=== PATIENT | female | born 1995 | race Caucasian/White ===

== ENCOUNTER 2023-10-01 08:12 | Emergency (ER) | payer BC ==
[2023-10-01] MEDS ORDERED: MORPHINE 4 MG/ML SYR ONE (09:06)
[2023-10-01] MEDS ORDERED: NA CHLORIDE 0.9% 1,000 ML ONE (09:06)
[2023-10-01] MEDS ORDERED: ONDANSETRON 4 MG/2 ML VIAL ONE (09:06)
[2023-10-01] MEDS ORDERED: FAMOTIDINE 20 MG/2 ML VIAL IV ONE (09:06)
[2023-10-01] MEDS ORDERED: KETOROLAC 30 MG/ML INJ ONE (09:06)
[2023-10-01 09:47] LABS: Absolute Eosinophils 0.1 K/uL (0-0.5); Absolute Lymphocytes (CBC) 1.6 K/uL (0.7-4.9); Absolute Monocytes 0.6 K/uL (0.1-1.3); Absolute Neutrophil 7.6 K/uL (1.8-8.0); Basophils % 0.3 % (0-1.3); Eosinophils % 1.2 % (0-4.4); Hematocrit 42.4 % (36.0-45.0); Hemoglobin 14.6 g/dL (12.0-15.0); Lymphocytes % 16.3 % (15.3-44.8); MCH 30.8 pg (27.0-35.0); MCHC 34.4 g/dL (32.0-36.0); MCV 89.5 fL (80-100); MPV 8.1 fL (7.6-11.3); Neutrophils % 76.2 % (41.7-73.7); Nucleated Red Blood Cells % 0.1 % (0-0); Platelets 354 thou/uL (152-406); RBC Red Blood Cell Count 4.73 M/uL (3.86-4.86); Red Cell Distribution Width 13.2 % (12.1-15.2)
[2023-10-01 10:09] LABS: Specific Gravity 1.008 (1.005-1.030)
[2023-10-01 10:10] LABS: Specific Gravity 1.008 (1.005-1.030); Sqamous Epithelial <5 /HPF (None Seen); Urine Bacteria None Seen /HPF (<20); Urine Bilirubin NEGATIVE (Negative); Urine Blood Negative (Negative); Urine Clarity Turbid (Clear); Urine Color Colorless (Yellow); Urine Crystals Unidentified Few /HPF (None Seen); Urine Culture Reflex Order NOT NEEDED; Urine Glucose NEGATIVE (Negative); Urine Ketones NEGATIVE (Negative); Urine Microscopic Reflex YN ORDER UMIC; Urine Mucus Slight /HPF (None Seen); Urine Nitrite NEGATIVE (Negative); Urine Protein NEGATIVE (Negative); Urine RBC <5 /HPF (None Seen); Urine Urobilinogen Normal (Normal); Urine WBC <5 /HPF (<5)
[2023-10-01 10:18] LABS: Albumin 3.5 g/dL (3.4-5.0); Albumin/Globulin Ratio 0.9 (1.1-1.8); Anion Gap 8.8 mEq/L (5.0-15.0); Bilirubin Total 0.3 mg/dL (0.2-1.0); Globulin 3.8 g/dL (2.3-3.5); Potassium 3.8 mEq/L (3.5-5.1); Protein, Total 7.3 g/dL (6.4-8.2)
[2023-10-01] MEDS ORDERED: CEFTRIAXONE 1000 MG/VIAL ONE (10:37)
[2023-10-01] MEDS ORDERED: NA CHLORIDE 0.9% 100 ML ONE (10:38)
--- NOTE | 2023-10-01 10:41 | RAD REPORT ---
EXAM DESCRIPTION: CTStone Protocol - 10/01/2023 10:33 am CLINICAL HISTORY: back pain COMPARISON: No comparisons TECHNIQUE: CT of the abdomen and pelvis was performed. All CT scans are performed using dose optimization technique as appropriate and may include automated exposure control or mA/KV adjustment according to patient size. FINDINGS: Lower chest: Small hiatal hernia. Liver: No acute abnormality or suspicious lesions. Biliary: No biliary ductal dilatation. Stomach: No significant focal abnormality. Duodenum: No significant focal abnormality. Pancreas: No significant abnormality. Spleen: No significant abnormality. Adrenal: No suspicious lesions. Kidney/ureter: Bilateral nephrolithiasis. Right-sided perinephric stranding. No hydronephrosis. Right -sided urothelial thickening is suspected. No ureteral calculi. Retroperitoneum: No retroperitoneal adenopathy. Vascular: No aneurysm. Bowel: No significant focal abnormality. Normal appendix. Peritoneum: No ascites or free air. Bladder: Grossly unremarkable. Reproductive: No adnexal masses. Bones: No acute fracture. Other: n/a IMPRESSION: Right-sided perinephric stranding and periureteric stranding without ureteral calculi. N o hydronephrosis. Question either recently passed stone versus infection. Correlate with urinalysis.
[2023-10-01] MEDS ORDERED: PHENAZOPYRIDINE 100MG TAB PO ONE (10:55)
[2023-10-01] MEDS ORDERED: levoFLOXacin 750 MG TAB ONE (10:55)
--- NOTE | 2023-10-01 11:09 | ER ---
Nurse's Notes [facility] Name: Bebe Yacney Age: 28 yrs Sex: Female : 1995 Arrival Date: 10/01/2023 Time: 07:58 Bed 20 Private MD: Diagnosis: Pyelonephritis acute;UTI/ Urinary tract infection, site not specified;Low back pain Presentation: 09/30 08:16 Chief complaint: Patient states: LOWER BACK PAIN RADIATES TO ABDOMEN FEELS SIMILAR TO db KIDNEY STONES. STARTED LAST NIGHT. TOOK TYLENOL AT 0530. Coronavirus screen: Client denies travel out of the [place] in the last 14 days. At this time, the client does not indicate any symptoms associated with coronavirus-19. Ebola Screen: Patient negative for fever greater than or equal to 101.5 degrees Fahrenheit, and additional compatible Ebola Virus Disease symptoms Patient denies exposure to infectious person. Patient denies travel to an Ebola-affected area in the 21 days before illness onset. No symptoms or risks identified at this time. Initial Sepsis Screen: Does the patient meet any 2 criteria? No. Patient's initial sepsis screen is negative. Does the patient have a suspected source of infection? No. Patient's initial sepsis screen is negative. Risk Assessment: Do you want to hurt yourself or someone else? Patient reports no desire to harm self or others. Onset of symptoms was October 01, 2023. 08:16 Method Of Arrival: Ambulatory db 08:16 Acuity: TIFFANY 3 db Triage Assessment: 08:17 General: Appears in no apparent distress. comfortable, Behavior is calm, cooperative. db Pain: Complains of pain in back and pelvis. Neuro: Level of Consciousness is awake, alert, obeys commands, Oriented to person, place, time, situation. Musculoskeletal: Circulation, motion, and sensation intact. Capillary refill < 3 seconds, Range of motion: intact in all extremities. Historical: - Allergies: 08:17 No Known Allergies; db - PMHx: 08:17 Kidney stone; db - PSHx: 08:17 Tonsillectomy; db - Immunization history:: Adult Immunizations unknown. - Infectious Disease History:: Denies. - Social history:: Smoking status: Patient reports the use of cigarette tobacco products, denies chronic smoking, but will smoke occasionally. Assessment: 08:16 Reassessment: SEE TRIAGE FOR INITIAL ASSESSMENT. db 11:01 Reassessment: No changes from previously documented assessment. Patient and/or family mb9 updated on plan of care and expected duration. Pain level reassessed. Patient is alert, oriented x 3, equal unlabored respirations, skin warm/dry/pink. Vital Signs: 08:16 BP 148 / 113; Pulse 95; Resp 18; Temp 98.4(O); Pulse Ox 97% ; Weight 90.72 kg; Height 5 db ft. 3 in. ; Pain 10/10; 10:11 BP 118 / 69; Pulse 85; Resp 18; Pulse Ox 100% on R/A; mb9 08:16 Body Mass Index 35.43 (90.72 kg, 160.02 cm) db 08:16 Pain Scale: Adult db ED Course: 07:58 Patient arrived in ED. im 07:59 Daniel Kwon MD is Attending Physician. torrey 08:16 Bebe Warren, RN is Primary Nurse. db 08:17 Triage completed. db 08:17 Arm band placed on. db 09:20 Initial lab(s) drawn. Inserted saline lock: 20 gauge in right antecubital area, using db aseptic technique. 09:49 Urine collected: clean catch specimen, clear. zm 10:35 Stone Protocol In Process Unspecified. EDMS Administered Medications: 09:15 Drug: NS 0.9% IV 1000 ml IV at 1 bolus Per protocol; 1000 mL bolus Route: IV; Rate: 1 db bolus; Site: right antecubital; 11:22 Follow up: Response: No adverse reaction; IV Status: Completed infusion mb9 09:15 Drug: Ketorolac IVP 30 mg IVP once Route: IVP; Site: right antecubital; db 09:20 Drug: Famotidine IVP 20 mg IVP once; dilute with 10 mL 0.9% NaCl; give over 2 minutes db Route: IVP; Site: right antecubital; 09:20 Drug: Ondansetron IVP 4 mg IVP once; over 2 minutes Route: IVP; Site: right antecubital;db 09:20 Drug: morphine IVP or IV 4 mg IVP once over 4 mins Route: IVP; Infused Over: 4 mins; db Site: right antecubital; 10:42 Drug: Rocephin IV 1 grams IV at per protocol once; Given slow IV push per pharmacy mb9 instructions Route: IV; Rate: per protocol; Site: right antecubital; 11:22 Follow up: Response: No adverse reaction; IV Status: Completed infusion mb9 10:57 Drug: Phenazopyridine PO 200 mg PO once Route: PO; mb9 11:22 Follow up: Response: No adverse reaction mb9 10:57 Drug: LevOfloxacin PO 750 mg PO once Route: PO; mb9 11:22 Follow up: Response: No adverse reaction mb9 Outcome: 11:09 Discharge ordered by MD. hirsch 11:23 Discharged to home ambulatory, mb9 11:23 Condition: stable 11:23 Discharge instructions given to patient, Instructed on discharge instructions, follow up and referral plans. Demonstrated understanding of instructions, follow-up care, medications, Prescriptions given X 6 11:24 Patient left the ED. mb9 Signatures: Dispatcher [employer] EDDaniel Rico MD MD cha Martinez, Zaina zm Benton, Danielle, Aleksandra Gonzalez RN RN RN mb9 Symone Gomez
--- NOTE | 2023-10-01 11:10 | EDPHYS ---
Physician Documentation [facility] Name: Bebe Yancey Age: 28 yrs Sex: Female : 1995 Arrival Date: 10/01/2023 Time: 07:58 Bed 20 Private MD: ED Physician Daniel Kwon HPI: 09/30 08:24 This 28 yrs old White Female presents to ER via Ambulatory with complaints of Back Pain.torrey 08:24 The patient presents with pain that is acute, with no known mechanism of injury. torrey Historical: - Allergies: 08:17 No Known Allergies; db - PMHx: 08:17 Kidney stone; db - PSHx: 08:17 Tonsillectomy; db - Immunization history:: Adult Immunizations unknown. - Infectious Disease History:: Denies. - Social history:: Smoking status: Patient reports the use of cigarette tobacco products, denies chronic smoking, but will smoke occasionally. ROS: 08:45 Constitutional: Negative for fever, chills, and weight loss, Eyes: Negative for injury, torrey pain, redness, and discharge, ENT: Negative for injury, pain, and discharge, Neck: Negative for injury, pain, and swelling, Cardiovascular: Negative for chest pain, palpitations, and edema, Respiratory: Negative for shortness of breath, cough, wheezing, and pleuritic chest pain, : Negative for injury, bleeding, discharge, and swelling, MS/Extremity: Negative for injury and deformity, Skin: Negative for injury, rash, and discoloration, Neuro: Negative for headache, weakness, numbness, tingling, and seizure, Psych: Negative for depression, anxiety, suicide ideation, homicidal ideation, and hallucinations, Allergy/Immunology: Negative for hives, rash, and allergies, Endocrine: Negative for neck swelling, polydipsia, polyuria, polyphagia, and marked weight changes, Hematologic/Lymphatic: Negative for swollen nodes, abnormal bleeding, and unusual bruising, 08:45 Abdomen/GI: Positive for abdominal pain, nausea and vomiting, abdominal cramps, of the suprapubic area, 08:45 Back: Positive for decreased range of motion, pain at rest, of the lumbar area, Exam: 08:45 Constitutional: This is a well developed, well nourished patient who is awake, alert, torrey and in no acute distress. Head/Face: Normocephalic, atraumatic. Eyes: Pupils equal round and reactive to light, extra-ocular motions intact. Lids and lashes normal. Conjunctiva and sclera are non-icteric and not injected. Cornea within normal limits. Periorbital areas with no swelling, redness, or edema. ENT: Nares patent. No nasal discharge, no septal abnormalities noted. Tympanic membranes are normal and external auditory canals are clear. Oropharynx with no redness, swelling, or masses, exudates, or evidence of obstruction, uvula midline. Mucous membranes moist. Neck: Trachea midline, no thyromegaly or masses palpated, and no cervical lymphadenopathy. Supple, full range of motion without nuchal rigidity, or vertebral point tenderness. No Meningismus. Chest/axilla: Normal chest wall appearance and motion. Nontender with no deformity. No lesions are appreciated. Cardiovascular: Regular rate and rhythm with a normal S1 and S2. No gallops, murmurs, or rubs. Normal PMI, no JVD. No pulse deficits. Respiratory: Lungs have equal breath sounds bilaterally, clear to auscultation and percussion. No rales, rhonchi or wheezes noted. No increased work of breathing, no retractions or nasal flaring. Skin: Warm, dry with normal turgor. Normal color with no rashes, no lesions, and no evidence of cellulitis. MS/ Extremity: Pulses equal, no cyanosis. Neurovascular intact. Full, normal range of motion. Neuro: Awake and alert, GCS 15, oriented to person, place, time, and situation. Cranial nerves II-XII grossly intact. Motor strength 5/5 in all extremities. Sensory grossly intact. Cerebellar exam normal. Normal gait. Psych: Awake, alert, with orientation to person, place and time. Behavior, mood, and affect are within normal limits. 08:45 Abdomen/GI: Inspection: abdomen appears normal, Bowel sounds: normal, Palpation: moderate abdominal tenderness, in the suprapubic area, Vital Signs: 08:16 BP 148 / 113; Pulse 95; Resp 18; Temp 98.4(O); Pulse Ox 97% ; Weight 90.72 kg; Height 5 db ft. 3 in. ; Pain 10/10; 10:11 BP 118 / 69; Pulse 85; Resp 18; Pulse Ox 100% on R/A; mb9 08:16 Body Mass Index 35.43 (90.72 kg, 160.02 cm) db 08:16 Pain Scale: Adult db MDM: 07:59 Patient medically screened. [facility] 08:49 Differential diagnosis: chronic back pain, Fatigue Obesity Renal Infarction ruptured torrey disc, Scoliosis sprain, Ureterolithiasis non-specific abd pain, pancreatitis, Ureterolithiasis, urinary tract infection. Data reviewed: vital signs, nurses notes, lab test result(s), radiologic studies, CT scan. Consideration of Admission/Observation Escalation of care including admission/observation considered. I considered the following discharge prescriptions or medication management in the emergency department Medications were administered in the Emergency Department. See MAR. Independent interpretation of the following test(s) in the Emergency Department CT Scan: My interpretation is ct stone. Test considered but Not performed: Ultrasound no abd usg. Historians other than the Patient: pt well informed. Care significantly affected by the following chronic conditions: kidney stones. Counseling: I had a detailed discussion with the patient and/or guardian regarding the historical points, exam findings, and any diagnostic results supporting the discharge/admit diagnosis, the presence of at least one elevated blood pressure reading (>120/80) during this emergency department visit, lab results, radiology results. 09/30 09:51 Order name: CBC with Automated Diff; Complete Time: 10:07 [facility] 09/30 10:09 Order name: Test, Urine; Complete Time: 10:27 [facility] 09/30 10:10 Order name: Urinalysis w/ reflexes [facility] 09/30 10:10 Order name: Comprehensive Metabolic Panel; Complete Time: 10:27 [facility] 09/30 10:10 Order name: Lipase; Complete Time: 10:27 [facility] 09/30 10:06 Order name: Stone Protocol; Complete Time: 10:47 [facility] 09/30 08:28 Order name: IV Saline Lock; Complete Time: 09:32 torrey 09/30 08:28 Order name: Labs collected and sent; Complete Time: 09:32 [facility] Administered Medications: 09:15 Drug: NS 0.9% IV 1000 ml IV at 1 bolus Per protocol; 1000 mL bolus Route: IV; Rate: 1 db bolus; Site: right antecubital; 11:22 Follow up: Response: No adverse reaction; IV Status: Completed infusion mb9 09:15 Drug: Ketorolac IVP 30 mg IVP once Route: IVP; Site: right antecubital; db 09:20 Drug: Famotidine IVP 20 mg IVP once; dilute with 10 mL 0.9% NaCl; give over 2 minutes db Route: IVP; Site: right antecubital; 09:20 Drug: Ondansetron IVP 4 mg IVP once; over 2 minutes Route: IVP; Site: right antecubital;db 09:20 Drug: morphine IVP or IV 4 mg IVP once over 4 mins Route: IVP; Infused Over: 4 mins; db Site: right antecubital; 10:42 Drug: Rocephin IV 1 grams IV at per protocol once; Given slow IV push per pharmacy mb9 instructions Route: IV; Rate: per protocol; Site: right antecubital; 11:22 Follow up: Response: No adverse reaction; IV Status: Completed infusion mb9 10:57 Drug: Phenazopyridine PO 200 mg PO once Route: PO; mb9 11:22 Follow up: Response: No adverse reaction mb9 10:57 Drug: LevOfloxacin PO 750 mg PO once Route: PO; mb9 11:22 Follow up: Response: No adverse reaction mb9 Disposition Summary: 10/01/23 11:09 Discharge Ordered Notes: Location: Home [facility] Problem: new torrey Symptoms: have improved torrey Condition: Stable torrey Diagnosis - Pyelonephritis acute torrey - UTI/ Urinary tract infection, site not specified torrey - Low back pain torrey Followup: torrey - With: Private Physician - When: 2 - 3 days - Reason: Recheck today's complaints, Continuance of care, Re-evaluation by your physician Discharge Instructions: - Discharge Summary Sheet torrey - Acute Back Pain, Adult torrey - Dysuria torrey - Pyelonephritis, Adult torrey - Pyelonephritis, Adult, [id number] torrey - Urinary Tract Infection, Adult torrey - Urinary Tract Infection, Adult, [id number] [facility] Forms: - Medication Reconciliation Form [facility] - Antibiotic Education torrey - Prescription Opioid Use [facility] - Patient Portal Instructions [facility] - Leadership Thank You Letter [facility] Prescriptions: - cefdinir 300 mg Oral capsule - take 1 capsule ORAL route 2 times per day for 5 days; 10 capsule; Refills: 0, torrey Product Selection Permitted - diclofenac sodium 50 mg Oral tablet, delayed release (enteric coated) - take 1 tablet ORAL route 3 times per day; 21 tablet; Refills: 0, Product torrey Selection Permitted - ondansetron 4 mg Oral Tablet,disintegrating - take 1 tablet ORAL route every 6-8 hours for 5 days; 20 tablet; Refills: 0, [facility] Product Selection Permitted - Pyridium 200 mg Oral Tablet - take 1 tablet ORAL route every 8 hours for 3 days; 9 tablet; Refills: 0, [facility] Product Selection Permitted - levofloxacin 500 mg Oral tablet - take 1 tablet ORAL route once daily for 7 days; 7 tablet; Refills: 0, Product [facility] Selection Permitted Signatures: Dispatcher [employer] Daniel Fay MD MD cha Benton, Danielle RN RN Aleksandra Solano RN RN mb9 Corrections: (The following items were deleted from the chart) 10:24 10:04 Jose Protocol+[email or web address] ordered. STACEYCA STACEYCA
[2023-10-01 12:02] VITALS: BP 118/69; TEMP 98.4; O2SAT 100
== END 2023-10-01 11:24 | disposition home or self-care (01) ==
LOC: ER 08:12
DX: N10 Acute pyelonephritis (principal); N39.0 Urinary tract infection, site not specified; Z87.442 Personal history of urinary calculi; F17.210 Nicotine dependence, cigarettes, uncomplicated
CPT/HCPCS: 96365; 96361; 85025; 81001; 36415; 81025; 83690; 80053; 76377; 74176; 96375; 99284; J2405; J7030; J0696

== ENCOUNTER 2024-01-16 17:36 | Emergency (ER) | payer BC ==
[2024-01-16 19:20] LABS: Absolute Eosinophils 0.1 K/uL (0-0.5); Absolute Lymphocytes (CBC) 1.9 K/uL (0.7-4.9); Absolute Monocytes 0.8 K/uL (0.1-1.3); Absolute Neutrophil 9.6 K/uL (1.8-8.0); Basophils % 0.3 % (0-1.3); Eosinophils % 0.8 % (0-4.4); Hemoglobin 14.1 g/dL (12.0-15.0); Lymphocytes % 15.6 % (15.3-44.8); MCH 31.1 pg (27.0-35.0); MCHC 35.1 g/dL (32.0-36.0); MCV 88.5 fL (80-100); MPV 7.7 fL (7.6-11.3); Monocytes % 6.1 % (3.3-12.3); Neutrophils % 77.2 % (41.7-73.7); Platelets 369 thou/uL (152-406); RBC Red Blood Cell Count 4.53 M/uL (3.86-4.86); Red Cell Distribution Width 12.9 % (12.1-15.2)
[2024-01-16] MEDS ORDERED: NA CHLORIDE 0.9% 1,000 ML ONE (19:24)
[2024-01-16 19:29] LABS: Albumin 3.5 g/dL (3.4-5.0); Albumin/Globulin Ratio 0.8 (1.1-1.8); Anion Gap 9.2 mEq/L (5.0-15.0); Bilirubin Total 0.4 mg/dL (0.2-1.0); Globulin 4.4 g/dL (2.3-3.5); Potassium 4.2 mEq/L (3.5-5.1); Protein, Total 7.9 g/dL (6.4-8.2)
[2024-01-16 20:37] LABS: Specific Gravity 1.015 (1.005-1.030)
[2024-01-16 20:38] LABS: Sqamous Epithelial <5 /HPF (None Seen); Urine Bacteria <20 /HPF (<20); Urine Culture Reflex Order NOT NEEDED; Urine Mucus Slight /HPF (None Seen); Urine RBC <5 /HPF (None Seen); Urine WBC <5 /HPF (<5); Urine Yeast (Budding) Trace /HPF (None Seen)
[2024-01-16 20:42] LABS: Specific Gravity 1.015 (1.005-1.030); Urine Bilirubin NEGATIVE (Negative); Urine Blood Negative (Negative); Urine Clarity Extremely Turbid (Clear); Urine Color Light-Yellow (Yellow); Urine Glucose NEGATIVE (Negative); Urine Ketones 3+ (Negative); Urine Microscopic Reflex YN NO UMIC; Urine Nitrite NEGATIVE (Negative); Urine Protein NEGATIVE (Negative); Urine Urobilinogen Normal (Normal)
--- NOTE | 2024-01-16 21:11 | RAD REPORT ---
EXAM: CT brain without contrast HISTORY: HEADACHE COMPARISON: None TECHNIQUE: Multiple contiguous axial images were obtained and a CT of the brain without contrast. Sag ittal and coronal reformats were performed. One or more of the following dose reduction techniques were used: Automated exposure control, adjust ment of the mA and/or kV according to patient size, and/or iterative reconstruction. FINDINGS: No evidence of hydrocephalus, intracranial hemorrhage, or extra-axial fluid collection. The brain is normal in morphology. No evidence of midline shift or areas of brain edema. The calvarium is intact. The visualized paranasal sinuses and mastoid air cells are essentially clear . IMPRESSION: No evidence of acute intracranial abnormality.
[2024-01-16] MEDS ORDERED: DIPHENHYDRAMINE 25 MG TAB/CAP ONE (21:23)
[2024-01-16] MEDS ORDERED: METOCLOPRAMIDE 10 MG/2mL INJ ONE (21:23)
[2024-01-16] MEDS ORDERED: ONDANSETRON 4 MG/2 ML VIAL ONE (21:23)
[2024-01-16] MEDS ORDERED: KETOROLAC 30 MG/ML INJ ONE (22:01)
[2024-01-16] MEDS ORDERED: ACETAMINOPHEN 500 MG TAB ONE (22:01)
--- NOTE | 2024-01-16 22:55 | EDPHYS ---
Physician Documentation [facility] Name: Bebe Yancey Age: 28 yrs Sex: Female : 1995 Arrival Date: 01/16/2024 Time: 17:36 Bed 13 Private MD: ED Physician Daniel Kwon HPI: 01/15 18:05 This 28 yrs old Female presents to ER via Ambulatory with complaints of Migraine. cp 18:05 The patient complains of pain to the top of head and forehead. The patient describes cp the headache as aching, constant. Onset: The symptoms/episode began/occurred this morning, upon awakening. Associated signs and symptoms: Pertinent positives: nausea, Photophobia Pertinent negatives: altered mental status, fever, neck stiffness, vision loss, vomiting, weakness. 18:05 Severity of symptoms: in the emergency department the pain a " 8" out of "10". Headache cp History: The patient has had previous headaches and this one is more severe than previous episodes. the symptoms are aggravated by sitting up. Historical: - Allergies: 17:52 No Known Allergies; ll1 - PMHx: 17:52 Kidney stone; ll1 - PSHx: 17:52 Tonsillectomy; ll1 - Immunization history:: Adult Immunizations up to date. - Infectious Disease History:: Denies. - Social history:: Smoking status: Reported history of juuling and/or vaping. Patient denies any tobacco usage or history of. ROS: 18:10 Constitutional: Negative for body aches, chills, fever, poor PO intake, cp 18:10 Eyes: Positive for photophobia, Negative for pain, vision loss, cp 18:10 ENT: Negative for drainage from ear(s), ear pain, sore throat, difficulty swallowing, difficulty handling secretions, 18:10 Cardiovascular: Negative for chest pain, edema, palpitations, 18:10 Respiratory: Negative for cough, shortness of breath, wheezing, 18:10 Abdomen/GI: Positive for nausea, Negative for abdominal pain, vomiting, diarrhea, constipation, 18:10 Skin: Negative for cellulitis, rash, 18:10 Neuro: Positive for headache, Negative for altered mental status, syncope, weakness, 18:10 All other systems are negative, Exam: 18:15 Constitutional: The patient appears in no acute distress, alert, awake, non-toxic, well cp developed, well nourished, obese, uncomfortable, 18:15 Head/Face: Normocephalic, atraumatic. cp 18:15 Eyes: Periorbital structures: appear normal, Pupils: equal, round, and reactive to light and accomodation, Extraocular movements: intact throughout, Conjunctiva: normal, no exudate, no injection, Sclera: no appreciated abnormality, Lids and lashes: appear normal, bilaterally, 18:15 ENT: External ear(s): are unremarkable, Ear canal(s): are normal, clear, TM's: dullness, bilaterally, Nose: is normal, Mouth: Lips: moist, Oral mucosa: pink and intact, moist, Posterior pharynx: Airway: no evidence of obstruction, patent, 18:15 Neck: ROM/movement: limited range of motion, is not appreciated, Meningeal signs: are not present, nuchal rigidity, is not appreciated, 18:15 Chest/axilla: Inspection: normal, 18:15 Cardiovascular: Rate: normal, Rhythm: regular, 18:15 Respiratory: the patient does not display signs of respiratory distress, Respirations: normal, no use of accessory muscles, no retractions, labored breathing, is not present, Breath sounds: are clear throughout, no decreased breath sounds, no stridor, no wheezing, 18:15 Abdomen/GI: Inspection: abdomen appears normal, Palpation: abdomen is soft and non-tender, in all quadrants, 18:15 Back: ROM is normal, CVA tenderness, is absent, 18:15 Neuro: Orientation: to person, place \\T\\ time. Mentation: is normal, Cerebellar function: is grossly normal, Motor: moves all fours, strength is normal, Sensation: is normal, Vital Signs: 17:53 BP 176 / 99; Pulse 96; Resp 17; Temp 97; Pulse Ox 100% ; Weight 95.25 kg; Height 5 ft. ll1 3 in. ; Pain 9/10; 19:40 BP 146 / 93; Pulse 96; Resp 16; Pulse Ox 100% on R/A; jb4 21:00 BP 159 / 102; Pulse 94; Resp 16; Pulse Ox 98% on R/A; jb4 22:00 BP 148 / 100; Pulse 96; Resp 16; Pulse Ox 98% on R/A; jb4 17:53 Body Mass Index 37.20 (95.25 kg, 160.02 cm) ll1 17:53 Pain Scale: Adult ll1 MDM: 17:51 Medical Screening Exam initiated cp 19:00 Differential diagnosis: cluster headache, hypertensive headache, meningitis, cp meningoencephalitis, migraine, sinusitis, subarachnoid bleed, tension headache. 22:52 Data reviewed: vital signs, nurses notes, lab test result(s), radiologic studies, CT cp scan, and as a result, I will discharge patient. I considered the following discharge prescriptions or medication management in the emergency department Medications were administered in the Emergency Department. See MAR. Counseling: I had a detailed discussion with the patient and/or guardian regarding the historical points, exam findings, and any diagnostic results supporting the discharge/admit diagnosis, lab results, radiology results, to return to the emergency department if symptoms worsen or persist or if there are any questions or concerns that arise at home. Response to treatment: the patient's symptoms have markedly improved after treatment, and as a result, I will discharge patient. 01/15 17:59 Order name: CBC with Diff; Complete Time: 21:18 01/15 21:42 Interpretation: Normal except: WBC 12.50; MATY% 77.2; NEUT A 9.6. 01/15 17:59 Order name: CMP; Complete Time: 21:18 01/15 22:26 Interpretation: Normal except: NA 135; GLOB 4.4; A/G 0.8. 01/15 17:59 Order name: Lipase; Complete Time: 21:18 01/15 17:59 Order name: Test, Urine; Complete Time: 21:18 01/15 18:00 Order name: Urinalysis w/ reflexes; Complete Time: 21:18 01/15 22:27 Interpretation: Normal except: [facility] Extremely Turbid; UKET 3+; UESTR 250; BYST Trace. 01/15 18:24 Order name: CT Head Brain wo Cont; Complete Time: 21:41 01/15 22:27 Interpretation: Report reviewed. 01/15 17:59 Order name: IV Saline Lock; Complete Time: 19:46 01/15 17:59 Order name: Labs collected and sent; Complete Time: 19:46 cp Administered Medications: 19:31 Drug: NS 0.9% IV 1000 ml IV at 1000 ml once; to be given as a bolus over 60 minutes jb4 Route: IV; Rate: 1000 ml; Site: left forearm; 21:44 Follow up: Response: No adverse reaction; IV Status: Completed infusion; IV Intake: jb4 1000ml 21:44 Not Given (Other Intervention Used): [id number] mg IVP once jb4 21:44 Drug: metoCLOPramide IVP 10 mg IVP once; over 1 to 2 minutes Route: IVP; Site: left jb4 forearm; 22:14 Follow up: Response: No adverse reaction; Marked relief of symptoms jb4 21:44 Drug: Ondansetron IVP 4 mg IVP once; over 2 minutes Route: IVP; Site: left forearm; jb4 22:14 Follow up: Response: No adverse reaction; Marked relief of symptoms jb4 21:44 Drug: diphenhydrAMINE PO 25 mg PO once Route: PO; jb4 22:14 Follow up: Response: No adverse reaction; Marked relief of symptoms jb4 22:13 Drug: Ketorolac IVP 15 mg IVP once Route: IVP; Site: left forearm; jb4 23:04 Follow up: Response: No adverse reaction; Marked relief of symptoms jb4 22:14 Drug: Acetaminophen PO 1000 mg PO once Route: PO; jb4 23:04 Follow up: Response: No adverse reaction; Marked relief of symptoms jb4 Disposition: 01/16 22:20 Chart complete. cp Disposition Summary: 01/16/24 22:54 Discharge Ordered Notes: Location: Home cp Problem: new cp Symptoms: have improved cp Condition: Stable cp Diagnosis - Headache cp Followup: cp - With: Private Physician - When: 2 - 3 days - Reason: Recheck today's complaints Discharge Instructions: - Discharge Summary Sheet cp - Migraine Headache cp Forms: - Medication Reconciliation Form cp - Antibiotic Education cp - Prescription Opioid Use cp - Patient Portal Instructions cp - Leadership Thank You Letter cp Prescriptions: - Fioricet 50-300-40 mg Oral capsule - take 1 capsule ORAL route every 6 hours as needed for pain; 20 capsule; cp Refills: 0, Product Selection Permitted - Ibuprofen 800 mg Oral Tablet - take 1 tablet ORAL route every 8 hours As needed take with food; 30 tablet; cp Refills: 0, Product Selection Permitted - Zofran 4 mg Oral Tablet - take 1 tablet ORAL route every 12 hours As needed; 20 tablet; Refills: 0, cp Product Selection Permitted Signatures: Dispatcher [employer] EDMS Daniel Murphy PA PA cp Bryson, James RN RN jb4 Edmundo Howard RN RN ll1 Corrections: (The following items were deleted from the chart) 01/15 18:00 17:59 CBC+H.LAB.BRZ ordered. EDMS EDMS 18:00 17:59 COMPREHENSIVE METABOLIC PANEL+C.LAB.BRZ ordered. EDMS EDMS 18:00 17:59 LIPASE+C.LAB.BRZ ordered. EDMS EDMS 18:00 17:59 Test, Urine+UC.LAB.BRZ ordered. EDMS EDMS
--- NOTE | 2024-01-16 22:55 | ER ---
Nurse's Notes [facility] Name: Bebe Yancey Age: 28 yrs Sex: Female : 1995 Arrival Date: 01/16/2024 Time: 17:36 Bed 13 Private MD: Diagnosis: Headache Presentation: 01/15 17:53 Chief complaint: Patient states: Severe MARR since 5 AM with nausea and sensitivity to ll1 light. Coronavirus screen: Client denies travel out of the [place] in the last 14 days. At this time, the client does not indicate any symptoms associated with coronavirus-19. Ebola Screen: Patient denies travel to an Ebola-affected area in the 21 days before illness onset. Initial Sepsis Screen: Does the patient meet any 2 criteria? No. Patient's initial sepsis screen is negative. Does the patient have a suspected source of infection? No. Patient's initial sepsis screen is negative. Risk Assessment: Do you want to hurt yourself or someone else? Patient reports no desire to harm self or others. Onset of symptoms was January 16, 2024. 17:53 Method Of Arrival: Ambulatory ll1 17:53 Acuity: TIFFANY 3 ll1 Historical: - Allergies: 17:52 No Known Allergies; ll1 - PMHx: 17:52 Kidney stone; ll1 - PSHx: 17:52 Tonsillectomy; ll1 - Immunization history:: Adult Immunizations up to date. - Infectious Disease History:: Denies. - Social history:: Smoking status: Reported history of juuling and/or vaping. Patient denies any tobacco usage or history of. Screenin:[address] [facility] ED Fall Risk Assessment (Adult) History of falling in the last 3 months, jb4 including since admission No falls in past 3 months (0 pts) Confusion or Disorientation No (0 pts) Intoxicated or Sedated No (0 pts) Impaired Gait No (0 pts) Mobility Assist Device Used No (0 pt) Altered Elimination No (0 pt) Score/Fall Risk Level 0 - 2 = Low Risk Oriented to surroundings, Maintained a safe environment. Abuse screen: Denies threats or abuse. Nutritional screening: No deficits noted. Tuberculosis screening: No symptoms or risk factors identified. Assessment: 18:00 General: Appears in no apparent distress. uncomfortable, Behavior is calm, cooperative, jb4 appropriate for age. Pain: Complains of pain in Migraine headache Pain does not radiate. Pain currently is 10 out of 10 on a pain scale. Neuro: Level of Consciousness is awake, alert, obeys commands, Oriented to person, place, time, situation, Reports photophobia. Cardiovascular: Patient's skin is warm and dry. Respiratory: Airway is patent Respiratory effort is even, unlabored, Respiratory pattern is regular, symmetrical. GI: No signs and/or symptoms were reported involving the gastrointestinal system. : No signs and/or symptoms were reported regarding the genitourinary system. EENT: No signs and/or symptoms were reported regarding the EENT system. Derm: Skin is intact, Skin is pink, warm \T\ dry. 19:00 Reassessment: Patient appears in no apparent distress at this time. Patient and/or jb4 family updated on plan of care and expected duration. Pain level reassessed. Patient is alert, oriented x 3, equal unlabored respirations, skin warm/dry/pink. 20:00 Reassessment: Patient appears in no apparent distress at this time. Patient and/or jb4 family updated on plan of care and expected duration. Pain level reassessed. Patient is alert, oriented x 3, equal unlabored respirations, skin warm/dry/pink. 21:00 Reassessment: Patient appears in no apparent distress at this time. Patient and/or jb4 family updated on plan of care and expected duration. Pain level reassessed. Patient is alert, oriented x 3, equal unlabored respirations, skin warm/dry/pink. 22:17 Reassessment: Patient appears in no apparent distress at this time. Patient and/or jb4 family updated on plan of care and expected duration. Pain level reassessed. Patient is alert, oriented x 3, equal unlabored respirations, skin warm/dry/pink. Vital Signs: 17:53 BP 176 / 99; Pulse 96; Resp 17; Temp 97; Pulse Ox 100% ; Weight 95.25 kg; Height 5 ft. ll1 3 in. ; Pain 9/10; 19:40 BP 146 / 93; Pulse 96; Resp 16; Pulse Ox 100% on R/A; jb4 21:00 BP 159 / 102; Pulse 94; Resp 16; Pulse Ox 98% on R/A; jb4 22:00 BP 148 / 100; Pulse 96; Resp 16; Pulse Ox 98% on R/A; jb4 17:53 Body Mass Index 37.20 (95.25 kg, 160.02 cm) ll1 17:53 Pain Scale: Adult ll1 ED Course: 17:38 Patient arrived in ED. ra3 17:40 Daniel Murphy PA is PHCP. cp 17:40 Daniel Kwon MD is Attending Physician. cp 17:54 Triage completed. ll1 21:34 CT Head Brain wo Cont In Process Unspecified. EDMS 22:14 Max Villalta, RN is Primary Nurse. jb4 23:02 Patient has correct armband on for positive identification. Bed in low position. Call jb4 light in reach. Side rails up X 1. Provided Education on: discharge instructions.. 23:02 No provider procedures requiring assistance completed. IV discontinued, intact, jb4 bleeding controlled, No redness/swelling at site. Pressure dressing applied. Administered Medications: 19:31 Drug: NS 0.9% IV 1000 ml IV at 1000 ml once; to be given as a bolus over 60 minutes jb4 Route: IV; Rate: 1000 ml; Site: left forearm; 21:44 Follow up: Response: No adverse reaction; IV Status: Completed infusion; IV Intake: jb4 1000ml 21:44 Not Given (Other Intervention Used): [id number] mg IVP once jb4 21:44 Drug: metoCLOPramide IVP 10 mg IVP once; over 1 to 2 minutes Route: IVP; Site: left jb4 forearm; 22:14 Follow up: Response: No adverse reaction; Marked relief of symptoms jb4 21:44 Drug: Ondansetron IVP 4 mg IVP once; over 2 minutes Route: IVP; Site: left forearm; jb4 22:14 Follow up: Response: No adverse reaction; Marked relief of symptoms jb4 21:44 Drug: diphenhydrAMINE PO 25 mg PO once Route: PO; jb4 22:14 Follow up: Response: No adverse reaction; Marked relief of symptoms jb4 22:13 Drug: Ketorolac IVP 15 mg IVP once Route: IVP; Site: left forearm; jb4 23:04 Follow up: Response: No adverse reaction; Marked relief of symptoms jb4 22:14 Drug: Acetaminophen PO 1000 mg PO once Route: PO; jb4 23:04 Follow up: Response: No adverse reaction; Marked relief of symptoms jb4 Intake: 21:44 IV: 1000ml; Total: 1000ml. jb4 Outcome: 22:54 Discharge ordered by . cp 23:02 Discharged to home ambulatory, jb4 23:02 Condition: stable 23:02 Discharge instructions given to patient, Instructed on discharge instructions, follow up and referral plans. no drinking with medication, no driving heavy equipment, medication usage, Demonstrated understanding of instructions, follow-up care, medications, Prescriptions given X 3, 23:04 Patient left the ED. jb4 Signatures: Dispatcher [employer] EDMS Daniel Murphy PA PA cp Bryson, James RN RN jb4 Edmundo Howard RN RN ll1 Kaycee Vogt ra3
[2024-01-17 02:07] VITALS: TEMP 97
[2024-01-17 02:09] VITALS: O2SAT 98
[2024-01-17 02:11] VITALS: BP 148/100
== END 2024-01-16 23:04 | disposition home or self-care (01) ==
LOC: ER 17:36 → SUPCPDRO 17:36 → ER 23:04
DX: R51.9 Headache, unspecified (principal)
CPT/HCPCS: 96361; 85025; 36415; 81025; 81003; 83690; 80053; 70450; 96375; 96374; 99284; J2765; J2405; J7030